=== PATIENT | female | born 1955 | race Caucasian/White ===

== ENCOUNTER 2017-05-11 10:01 | Outpatient (CLI) | payer OTHER ==
--- NOTE | 2017-05-11 12:33 | XRAY Report ---
FOUR-VIEW LEFT KNEE: 05/11/2017 CLINICAL INDICATION: Osteoporosis. FINDINGS: AP, notch, lateral, sunrise views of the left knee demonstrate moderate osteoarthritis. T here is no evidence of acute fracture. No effusion is seen. IMPRESSION: MODERATE LEFT KNEE OSTEOARTHRITIS. JOB #: [id number] EXT JOB #:[id number]
== END 2017-05-11 10:02 | disposition home or self-care (01) ==
LOC: DI.N 10:01
PROVIDERS: ATTEND Internal Medicine
DX: M17.12 Unilateral primary osteoarthritis, left knee (principal)

== ENCOUNTER 2017-05-22 15:29 | Outpatient (CLI) | payer OTHER ==
--- NOTE | 2017-05-23 11:34 | XRAY Report ---
CHEST, TWO VIEWS: 05/22/2017 HISTORY: Cough. COMPARISON: None. FINDINGS: The heart is top normal in size. There is a small amount of linear subsegmental atelectas is or scarring at the left base. The lungs are otherwise clear. No pleural fluid or pneumothorax. Minor degenerative change in the spine. IMPRESSION: NO ACUTE FINDINGS TWO-VIEW CHEST X-RAY. JOB #: [id number] EXT JOB #:[id number]
== END 2017-05-22 15:30 | disposition home or self-care (01) ==
LOC: DI.N 15:29
PROVIDERS: ATTEND Internal Medicine
DX: R05 Cough (principal)
CPT/HCPCS: 71020

== ENCOUNTER 2017-09-19 09:50 | Outpatient (CLI) | payer OTHER ==
--- NOTE | 2017-09-19 14:53 | DEXA Report ---
DEXA SCAN: 09/19/2017 CLINICAL INDICATION: Postmenopausal, history of prednisone use. TECHNIQUE: Dual energy x-ray absorptiometry (DXA) was performed on a [employer] system. Regions measured are the AP spine, femoral neck, and, if needed, forearm. COMPARISON: None. In accordance with the International Society for Clinical Densitometry (ISCD) guidelines, data from previous exams may be reanalyzed using current recommendations and techniques. This is done to allow a more accurate basis for comparison with the current study. FINDINGS: The data for the lumbar spine is as follows: REGION BMD (g/cm/cm) T-SCORE Z-SCORE L1 0.917 -1.8 -1.6 L2 1.082 -1.0 -0.8 L3 1.233 0.3 0.4 L4 1.240 0.3 0.5 TOTAL 1.126 -0.4 - 0.3 NOTE: All evaluable vertebrae are used for classification. The data for the hip is as follows: REGION BMD (g/cm/cm) T-SCORE Z-SCORE Neck 0.923 -0.8 - 0.3 TOTAL 1.013 0.0 0.2 NOTE: The femoral neck or total proximal femur, whichever is lowest, is used for classification. IMPRESSION: THE WHO CLASSIFICATION BASED ON THE INTERNATIONAL REFERENCE STANDARD IS NORMAL. THE FRACTURE RISK IS NOT INCREASED. RECOMMENDATION: Patients with diagnosis of osteoporosis or osteopenia should have regular bone mineral density assessment. For those eligible for Medicare, routine testing is allowed once every 2 years. Testing frequency can be increased for patients who have rapidly progressing disease or for those who are receiving medical therapy to restore bone mass. COMMENT: World Health Organization (WHO) definitions for osteoporosis and osteopenia: NORMAL BMD: T-score at 1.0 or higher, fracture risk is low. OSTEOPENIA BMD: T-score between 1.0 and -2.5, fracture risk is increased. OSTEOPOROSIS BMD: T-score at 2.5 or lower, fracture risk high. National Osteoporosis Foundation recommends: 1. Obtain adequate dietary calcium (at least 1200 mg per day) and vitamin D (400 -800 international units per day). 2. Participate, as appropriate, in regular weightbearing and muscle- strengthening exercise. 3. Avoid tobacco use and reduce alcohol and caffeine intake. 4. For more detailed information see the website at www.NOF.org. TD: 09/19/2017 14:15 [email or web address]
== END 2017-09-19 09:51 | disposition home or self-care (01) ==
LOC: DI 09:50
PROVIDERS: ATTEND Internal Medicine
DX: M81.0 Age-related osteoporosis without current pathological fracture (principal); Z79.52 Long term (current) use of systemic steroids
CPT/HCPCS: 77080

== ENCOUNTER 2019-04-14 08:51 | Outpatient (CLI) | payer SELFPAY ==
--- NOTE | 2019-04-14 16:07 | XRAY Report ---
Reason: FOOT PAIN AND BRUISING Procedure Date: 04/14/2019 Accession Number: [id number] / [id number] Procedure: XR - Foot 3 View LT CPT Code: FULL RESULT: EXAM: LEFT FOOT RADIOGRAPHY EXAM DATE: 04/14/2019 09:19 AM. CLINICAL HISTORY: Foot pain and bruising. COMPARISON: None. TECHNIQUE: 3 views. FINDINGS: Bones: There is an intra-articular fracture of the base of the proximal first phalanx. Early periosteal reaction formation suggests that the finding is potentially subacute. There is moderate posterior calcaneal spurring and mild inferior calcaneal spurring. Joints: Normal. No subluxations. Soft Tissues: Normal. No soft tissue swelling. IMPRESSION: Intra-articular fracture of the proximal first phalanx. [facility] The call report notification system was initiated by Dr. Brando Gannon at 04:05 PM on 04/14/2019. ADDENDUM: 04/14/19 16:15 The above call report findings were discussed with Betty Cook by Dr. Brando Gannon at 04:15 PM on 04/14/2019.
== END 2019-04-14 08:52 | disposition home or self-care (01) ==
LOC: DI 08:51
PROVIDERS: ATTEND Physician Assistant Medical
DX: S92.412A Displaced fracture of proximal phalanx of left great toe, initial encounter for closed fracture (principal)

== ENCOUNTER 2020-12-22 09:43 | Outpatient (CLI) | payer MEDICARE ==
--- NOTE | 2020-12-22 11:01 | DEXA Report ---
PROCEDURE: Dexa Spine and/or Hip INDICATIONS: OSTEOPOROSIS, FITNESS ASSISTANT STEROID USE TECHNIQUE: Dual energy x-ray absorptiometry (DXA) was performed on a [employer] System. Regions measur ed are the AP Spine, femoral neck, and if needed forearm. COMPARISON: None. FINDINGS: Lumbar Spine: Bone Mineral Density 1.174 g/cm/cm,T score 0.0, Left Femoral Neck: Bone Mineral Density 0.995 g/cm/cm, T score -0.1, (T score greater or equal to -1.0: NORMAL) (T score from -1.1 to -2.4: OSTEOPENIA) (T score less than or equal to -2.5 to: OSTEOPOROSIS) Impression: Normal. Patients with diagnosis of osteoporosis or osteopenia should have regular bone mineral density assess ment. For those eligible for Medicare, routine testing is allowed once every 2 years. Testing frequ ency can be increased for patients who have rapidly progressing disease or for those who are receivin g medical therapy to restore bone mass. Reviewed by: Satish Schmitt MD on 12/22/2020 11:00 AM PDT Approved by: Satish Schmitt MD on 12/22/2020 11:00 AM PDT Station ID: [id number]
== END 2020-12-22 09:44 | disposition home or self-care (01) ==
LOC: DI 09:43
PROVIDERS: ATTEND Internal Medicine
DX: M81.0 Age-related osteoporosis without current pathological fracture (principal); Z79.52 Long term (current) use of systemic steroids

== ENCOUNTER 2021-12-02 13:54 | Outpatient (CLI) | payer MEDICARE ==
--- NOTE | 2021-12-02 14:25 | XRAY Report ---
PROCEDURE: Chest 2 View X-Ray INDICATIONS: DYSPHAGIA; GERD; CHEST PAIN TECHNIQUE: 2 view(s) of the chest. COMPARISON: None. FINDINGS: Surgical changes and devices: None. Lungs and pleura: No pleural effusions or pneumothorax. There is hyperinflation. No focal infiltrate . Mediastinum: Mediastinal contours are normal. Heart size is normal. Bones and chest wall: No suspicious bony abnormalities. Soft tissues appear unremarkable. IMPRESSION: COPD. No focal infiltrate, pleural effusion or pneumothorax. Reviewed by: Kirk Brunner MD on 12/02/2021 2:23 PM PDT Approved by: Kirk Brunner MD on 12/02/2021 2:23 PM PDT Station ID: [id number]
== END 2021-12-02 13:55 | disposition home or self-care (01) ==
LOC: DI.N 13:54
PROVIDERS: ATTEND Internal Medicine Gastroenterology
DX: J44.9 Chronic obstructive pulmonary disease, unspecified (principal)

== ENCOUNTER 2022-05-17 08:00 | Outpatient (CLI) | payer MEDICARE ==
--- NOTE | 2022-05-18 08:52 | XRAY Report ---
PROCEDURE: Foot 3 View RT INDICATIONS: R FOOT PX TECHNIQUE: 3 views of the foot were acquired. COMPARISON: None FINDINGS: Bones: There are postsurgical changes with plate and screw fixation consistent with prior subtalar a nd midfoot fusion. Surgical hardware appears in good position without evidence for hardware complicat ion. No acute osseous abnormality is seen. No significant degenerative changes are seen. Moderate diffuse osteopenia is present. There is some moderate soft tissue swelling about the foot. IMPRESSION: 1. Imaging findings are consistent with the plate and screw fixation involving the midfoot and subtal ar joint. Surgical hardware appears satisfactory. 2. Moderate diffuse osteopenia. 3. Moderate diffuse soft tissue swelling about the foot. 4. No definite acute osseous abnormality seen. Reviewed by: Santhosh Garnica MD on 05/18/2022 8:51 AM PDT Approved by: Santhosh Garnica MD on 05/18/2022 8:51 AM PDT Station ID: [id number]
== END 2022-05-17 23:59 | disposition home or self-care (01) ==
LOC: DI.N 08:00
PROVIDERS: ATTEND Physician Assistant
DX: M85.871 Other specified disorders of bone density and structure, right ankle and foot (principal); M79.9 Soft tissue disorder, unspecified

== ENCOUNTER 2022-06-07 08:43 | Outpatient (CLI) | payer MEDICARE ==
--- NOTE | 2022-06-08 11:42 | XRAY Report ---
PROCEDURE: Ankle 3 View RT INDICATIONS: PAIN AT PROX 5TH RAY RIGHT FOOT TECHNIQUE: 3 views of the ankle were acquired. COMPARISON: X-ray right foot, 06/07/2022 and 05/17/2022 FINDINGS: Bones: Extensive postoperative changes with surgical fusion involving the tarsal joints. Degenerativ e joint disease of the patellar joint. No fractures or dislocations. Ankle mortise is normally align ed. No suspicious bony lesions. Calcaneal spurring. There is moderate osteopenia. Soft tissues: Marked soft tissue swelling. No tibiotalar joint effusion. Achilles tendon appears nor mal. IMPRESSION: 1. Extensive postsurgical changes are present. 2. No definitive acute osseous abnormalities. If clinical symptoms persist, consider advanced imaging such as CT, MRI or triple phase bone scan. 3. Moderate osteopenia. 4. Marked soft tissue swelling. Reviewed by: Chelsie Toney MD on 06/08/2022 11:41 AM PDT Approved by: Chelsie Toney MD on 06/08/2022 11:41 AM PDT Station ID: [id number]
--- NOTE | 2022-06-08 13:53 | XRAY Report ---
PROCEDURE: Foot 3 View RT INDICATIONS: PAIN AT PROX 5TH RAY RIGHT FOOT TECHNIQUE: 3 views of the foot were acquired. COMPARISON: X-ray right foot, 05/16/2022 FINDINGS: Bones: Again noted are postoperative changes with surgical fusion of inteertarsal joints, unchanged. [id number]-[id number] degenerative joint disease at the tarsometatarsal joints, metatarsophalangeal joints and indeterminate phalangeal joints. No fractures or dislocations. Calcaneal spurring. Osteopenia. Soft tissues: Marked soft tissue swelling in the dorsum of the foot. No tibiotalar joint effusion. Ac hilles tendon appears normal. IMPRESSION: 1. Stable postsurgical changes are present. 2. No definitive acute osseous abnormalities. 3. Osteopenia. 4. Marked soft tissue swelling. Differential diagnoses include cellulitis and venous stasis. Recommen d clinical correlation. Reviewed by: Chelsie Toney MD on 06/08/2022 1:52 PM PDT Approved by: Chelsie Toney MD on 06/08/2022 1:52 PM PDT Station ID: [id number]
== END 2022-06-07 08:44 | disposition home or self-care (01) ==
LOC: DI 08:43
PROVIDERS: ATTEND Internal Medicine
DX: M85.871 Other specified disorders of bone density and structure, right ankle and foot (principal); M19.071 Primary osteoarthritis, right ankle and foot; M79.9 Soft tissue disorder, unspecified

== ENCOUNTER 2022-08-30 13:04 | Outpatient (CLI) | payer MEDICARE ==
--- NOTE | 2022-08-30 17:19 | Ultrasound Report ---
PROCEDURE: Duplex Ext Veins Bilateral INDICATIONS: Bilateral lower extremity edema TECHNIQUE: Real-time imaging, as well as color and pulse Doppler interrogation, were performed of the deep veins of both legs from the inguinal ligament to the popliteal fossa. COMPARISON: None FINDINGS: The deep veins are normally compressible, and free of intraluminal thrombus. Color and pu lse Doppler demonstrate normal phasic intravascular flow. There is normal augmentation response to d istal compression maneuver. IMPRESSION: 1. No DVT in either lower extremity. Reviewed by: Marielena Mauro MD on 08/30/2022 5:18 PM PST Approved by: Marielena Mauro MD on 08/30/2022 5:18 PM PST Station ID: [id number]
== END 2022-08-30 13:05 | disposition home or self-care (01) ==
LOC: DI 13:04
PROVIDERS: ATTEND Internal Medicine
DX: R60.0 Localized edema (principal)
CPT/HCPCS: 93970

== ENCOUNTER 2022-09-20 10:05 | Outpatient (CLI) | payer MEDICARE ==
--- NOTE | 2022-09-21 14:34 | XRAY Report ---
PROCEDURE: Shoulder 3 View RT INDICATIONS: SHOULDER PX TECHNIQUE: 4 views of the shoulder were acquired. COMPARISON: None. FINDINGS: Bones: Moderate acromioclavicular and glenohumeral degenerative changes. High riding humeral head whi ch suggests chronic rotator cuff tear. No fractures or dislocations. No suspicious bony lesions. Vi sualized ribs appear intact. Soft tissues: No suspicious soft tissue calcifications. IMPRESSION: Findings suggestive of chronic rotator cuff tear and moderate osteoarthritis involving the glenohumer al and acromioclavicular joints. Reviewed by: Toby Su MD on 09/21/2022 2:32 PM PST Approved by: Toby Su MD on 09/21/2022 2:32 PM PST Station ID: [id number]
== END 2022-09-20 10:06 | disposition home or self-care (01) ==
LOC: DI 10:05
PROVIDERS: ATTEND Internal Medicine
DX: M25.511 Pain in right shoulder (principal)